=== PATIENT | female | born 2000 | race Caucasian/White ===

== ENCOUNTER 2021-10-05 00:31 | Emergency (ER) | payer OTHER, SELFPAY ==
[2021-10-05 00:40] VITALS: BP 135/82; PULSE 61; RESP 16; TEMP 36.9; O2SAT 100; BMI 22.1
--- NOTE | 2021-10-05 01:57 | ED.PSYCH ---
HPI - Psych General Chief Complaint: Psychiatric Symptoms Stated Complaint: SI Time Seen by Provider: 10/05/21 01:54 History of Present Illness HPI Narrative: Patient is a 21-year-old female presented today with suicidal ideation. Positive history of depression. Patient made suicidal. Any suicidal gesture by cutting wrist. Patient stated that she will kill herself many times. Patient sent in further evaluation. Denies any recreational drug use other than marijuana. Denies using heroin or cocaine. Patient has no specific complaint at this time Related Data Allergies Allergy/AdvReac Type Severity Reaction Status Date / Time No Known Allergies Allergy Unverified 07/15/20 19:23 [No Known Allergies*] Review of Systems Review of Systems: No fever no chills no chest pain or shortness of breath no diaphoresis All system reviewed otherwise negative [facility] Past Medical History Attestation statement: The following information was validated with the patient. Social History Social History Advance Directives: No Patient : No Physical Exam Vital Signs: Vital Signs: Last Vital Signs Temp 98.5 F 10/05/21 00:40 Pulse 61 10/05/21 00:40 Resp 16 10/05/21 00:40 BP 135/82 10/05/21 00:40 Pulse Ox 100 10/05/21 00:40 BMI result Body Mass Index 22.1 Appearance: Alert. Oriented X3. No acute distress. Eyes: Pupils equal, round and reactive to light. ENT: Pharynx normal. Neck: Normal inspection. Neck supple. No lymph nodes noted. No crepitus CVS: Normal heart rate and rhythm. Pulses normal. Normal S1 and S2 Respiratory: No respiratory distress. Breath sounds normal. No Wheezing. No rales Abdomen: Soft and nontender. No rigidity. No distention. good BS x4 Skin: Superficial cut noted in the forearms. Extremities: No lower extremity edema. Neurovascular intact to all extremities. No Lacerations. No Rash Neuro: Oriented X 3. No motor deficit. No sensory deficit. Moving all extermities. No slurred speech MDM - Psych MDM Narrative Medical decision making narrative: Patient medically cleared awaiting crisis evaluation Lab Data Labs: Lab Results 10/05/21 10/05/21 10/05/21 Range/Units 01:49 01:49 01:50 Urine Color Urine Appearance Urine pH (5.0-8.0) Ur Specific [place] (1.005-1.025) Urine Protein (NEG-TRACE) MG/DL Urine Glucose (UA) (NEG) MG/DL Urine Ketones (NEG) MG/DL Urine Blood (NEG) Urine Nitrite (NEG) Ur Leukocyte Esterase (NEG) Urine RBC (0) /HPF Urine WBC (0-4) /HPF Ur Squamous Epith Cells /LPF Urine Bacteria /LPF Urine Mucus /LPF Urine Test NEGATIVE (NEGATIVE) Urine Opiates Screen Not Detected (Not Detect) Urine Fentanyl Screen Not Detected (Not Detect) Ur Barbiturates Screen Not Detected (Not Detect) Ur Phencyclidine Scrn Not Detected (Not Detect) Ur Amphetamines Screen Not Detected (Not Detect) U Benzodiazepines Scrn Not Detected (Not Detect) Urine Cocaine Screen Not Detected (Not Detect) U Marijuana (THC) Screen POSITIVE H (Not Detect) COVID-19 ([facility]) Negative (Negative) COVID-19 Clin Com See Note 10/05/21 Range/Units 01:50 Urine Color YELLOW Urine Appearance HAZY Urine pH 6.0 (5.0-8.0) Ur Specific [place] >= 1.030 H (1.005-1.025) Urine Protein NEG (NEG-TRACE) MG/DL Urine Glucose (UA) NEG (NEG) MG/DL Urine Ketones NEG (NEG) MG/DL Urine Blood NEG (NEG) Urine Nitrite NEG (NEG) Ur Leukocyte Esterase NEG (NEG) Urine RBC 1-4 (0) /HPF Urine WBC 1-4 (0-4) /HPF Ur Squamous Epith Cells 2+ /LPF Urine Bacteria 3+ /LPF Urine Mucus 2+ /LPF Urine Test (NEGATIVE) Urine Opiates Screen (Not Detect) Urine Fentanyl Screen (Not Detect) Ur Barbiturates Screen (Not Detect) Ur Phencyclidine Scrn (Not Detect) Ur Amphetamines Screen (Not Detect) U Benzodiazepines Scrn (Not Detect) Urine Cocaine Screen (Not Detect) U Marijuana (THC) Screen (Not Detect) COVID-19 ([facility]) (Negative) COVID-[facility] Clin Com Discharge Plan Discharge Clinical Impression: Depression
[2021-10-05 02:04] LABS: Appearance Urine HAZY; Color Urine YELLOW; Glucose Urine UA NEG (NEG); Leukocyte Esterase Urine NEG (NEG); Nitrite Urine NEG (NEG); Specific Gravity - Urine >= 1.030 (1.005-1.025); Urine Blood NEG (NEG); Urine Ketones NEG (NEG); Urine Protein NEG (NEG-TRACE)
[2021-10-05 02:07] LABS: UPreg QC Valid YES; Urine Pregnancy NEGATIVE (NEGATIVE)
[2021-10-05 02:11] LABS: Bacteria Urine 3+ /LPF; Mucus Urine 2+ /LPF; Squamous Epithelial Cell Urine 2+ /LPF
[2021-10-05 02:17] LABS: COVID-19 Test Negative (Negative)
[2021-10-05 02:28] LABS: Amphetamine Screen Urine Not Detected (Not Detect); Barbiturates, Urine Not Detected (Not Detect); Benzodiazepines Screen Urine Not Detected (Not Detect); Cannabinoid Screen Urine POSITIVE (Not Detect); Cocaine Screen Urine Not Detected (Not Detect); Fentanyl, urine Not Detected (Not Detect); Opiate Screen Urine Not Detected (Not Detect); Phencyclidine Screen Urine Not Detected (Not Detect)
--- NOTE | 2021-10-05 06:29 | PC.NURSE ---
Patient slept intermittently, no distress observed/reported, behavior tearful and sad but calming down, offered medication to calm down but refused, [facility] referral completed/confirmed, patient will be evaluated by [facility] in the morning, will continue to monitor.
--- NOTE | 2021-10-05 07:18 | PC.NURSE ---
patient appears to remain at rest at present respirations are even and unlabored patient appears in no distress
--- NOTE | 2021-10-05 16:40 | MHC.CARE ---
Patient evaluated by the CARE Team, she did not meet the criteria for an inpatient psychiatric admission as she denied suicidal and homicidal ideation and is not suffering from psychosis. She made a suicidal statement and gesture yesterday, but has no history attempts, has no plan or intention on taking her own life. 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 Written safety plan was made with patient, intake for [facility] scheduled for 10/14/21 @ 8:00, she was provided with contact information for the CARE Team and [facility] Crisis, given list of local therapists.
== END 2021-10-05 16:38 | disposition home or self-care (01) ==
PROVIDERS: Emergency Provider Emergency Medicine Emergency Medical Services
DX: F33.9 Major depressive disorder, recurrent, unspecified (principal); Z20.822 Contact with and (suspected) exposure to COVID-19
CPT/HCPCS: 36415; 80307; 81001; 81025; 87635; 99283; 99284

== ENCOUNTER 2021-11-01 10:15 | Outpatient (RCR) | payer OTHER, SELFPAY ==
[2021-10-11 11:55] VITALS: BMI 21.2
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
--- NOTE | 2021-10-18 08:36 | PC.NURSE ---
Case opened in treatment team
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
--- NOTE | 2021-10-24 11:14 | PC.NURSE ---
Lisset Muller patients friend called and left a message stating that Media is calling out today as patient was feeling tired and needed to get some sleep. Message forwarded to Beba Anderson
--- NOTE | 2021-10-27 14:58 | HO.PHPPROGNO ---
Subjective Subjective Date of Service: 10/27/21 Reason For Visit: Depressive D/o Unspecified Guardianship: No Medical Problems Affecting Mental Status: No Interim History: Noy reports that she is feeling okay today. Reports that she continues with dysphoric mood. States that her depressive symptoms are slowly improving. States that she is learning how to manage her anxiety in order to help keep it under control. No thoughts of harm to self or others, reports she is safe. Not interested in any medications at this time. Attending Groups: Yes Review of Systems Acute medical concerns: No Medical Review of Systems: unchanged Review of Systems Review of Systems No fever no chills no chest pain or shortness of breath no diaphoresis All system reviewed otherwise negative Mental Status Exam Mental Status Exam Narrative: A&OX4. Well groomed, good hygiene, appropriately dressed for weather/age. Good eye contact, attentive. No Tics or Tremors. No abnormal involuntary movements. Calm, cooperative, engaged. Non-pressured speech, spontaneous with regular rate and rhythm, normal volume and prosody. No prolonged speech latency or dysarthria. Mood is depressed but getting better . affect is mood congruent. Denies SI/SIB/HI upon inquiry. Reports feels safe. Denies A/VH or delusional thought content. Thoughts are coherent, organized. No known cognitive or memory impairment. Insight/ Judgment fair and adequate. Diagnostics Vital Signs (24Hr): BMI result Body Mass Index 21.2 Assessment & Plan Assessment & Plan (1) MDD (major depressive disorder), recurrent episode, moderate: Status: Acute Code(s): F33.1 - Major depressive disorder, recurrent, moderate Assessment and Plan: Noy reports that she is feeling okay today. Reports that she continues with dysphoric mood. States that her depressive symptoms are slowly improving. States that she is learning how to manage her anxiety in order to help keep it under control. No thoughts of harm to self or others, reports she is safe. Not interested in any medications at this time. (2) Post traumatic stress disorder (PTSD): Status: Acute Code(s): F43.10 - Post-traumatic stress disorder, unspecified (3) RONNIE (generalized anxiety disorder): Status: Acute Code(s): F41.1 - Generalized anxiety disorder Assessment and Plan: 1. Continue with current [facility] treatment plan. 2. Follow-up as per protocol. Patient educated on: diagnosis, medication risk/benefits and therapeutic strategies Informed Consent: understands Reason for contiued partial hosp. stay Substantial Risk for: inability to function Certification I certify that partial hospital treatment is medically necessary due to the symptoms and problems resulting from the patient's mental illness and the failure to treat the patient at the partial hospital level of care would likely result in the patient requiring inpatient psychiatric care which could not be prevented at a less intensive level of care. I spent minutes with the patient and/or on the patient floor today, greater than?50% of which was spent counseling/coordinating care. Discharge Plan Discharge Attending provider: Rommel Strong Additional Instructions: Kelli Moore [facility] November 07 @ 1:00, referral made for [facility] care coordination Medications: No Action No Known Home Meds RF: 0 Stand Alone Forms: Patient Portal Discharge page Telehealth Telehealth Location of provider rendering services: practice address Location of patient: address on file Patient Identification confirmed using: Name, : Yes Telehealth method: video Patient verbally consented to treatment: Yes Patient verbally consented to billing insurance company: Yes Patient informed of any privacy concerns related to visit: Yes Time spent with patient (mins): 15
--- NOTE | 2021-10-31 09:16 | PC.NURSE ---
The client called out sick
== END 2021-11-02 07:02 | disposition home or self-care (01) ==
LOC: HO.PHPA 10:15
PROVIDERS: Visit Provider Psychiatry & Neurology Psychiatry
DX: F33.1 Major depressive disorder, recurrent, moderate (principal); F41.1 Generalized anxiety disorder; F43.10 Post-traumatic stress disorder, unspecified
CPT/HCPCS: 90791; 90853